=== PATIENT | female | born 1940 | race Caucasian/White ===

== ENCOUNTER 2016-08-18 06:18 | Observation (INO) | payer MEDICARE, BC ==
[~2016-08-18] VITALS: Ht 157.5 cm; Wt 85.9 kg
[2016-08-18] VITALS (8 sets, daily range): BP systolic 122–142; BP diastolic 50–72
[~2016-08-18 06:18] MED LIST: AMLODIPINE5 MG PO; ASPIRIN81 MG PO; CIPROFLOXACN250 MG PO; DILAUDID 2MG2 MG/TA1 PO; GINKGO BILOB30 M1 PO; LORTAB5 OR; MULTI VIT PO; ZYRTEC10 MG PO
--- NOTE | 2016-08-18 06:25 | NUR ---
PATIENT BROUGHT IMMEDIATELY TO TREATMENT AREA. ENCOURAGED TO VOID FOR URINE SAMPLE. UNDRESSED INTO A GOWN. AWAITING MD STEVENSON.
--- NOTE | 2016-08-18 07:21 | NUR ---
PT NOW WITH IV ESTABLISHED, BLOOD DRAWN, PROVIDED MEDS ORDERED.
[2016-08-18 07:23] LABS: HEMATOCRIT 37.5 % (37.0-47.0); HEMOGLOBIN 12.9 g/dl (12.0-16.0); IMMATURE GRANULOCYTES 0.2 % (0.0-1.0); MEAN CELL VOLUME 93.5 fL CALC (80.0-100.0); MEAN CORPUSCULAR HGB 32.2 pG CALC (26.0-32.0); MEAN CORPUSCULAR HGB CONC 34.4 g/L CALC (32.0-36.0); NEUT# 2.68 thou/uL (2.00-7.15); RED BLOOD COUNT 4.01 mill/uL (4.20-5.60); RED CELL DISTRI WIDTH 12.5 % (11.5-15.5)
[2016-08-18 07:28] LABS: ALBUMIN 4.1 g/dL (3.2-5.0); BILIRUBIN, TOTAL 0.4 mg/dL (0.0-1.4); CALCIUM 10.5 mg/dL (8.4-10.2); CREATININE 1.8 mg/dL (0.5-1.0); POTASSIUM 4.3 mmol/l (3.5-5.1); TOTAL PROTEIN 7.2 g/dL (6.3-8.2)
--- NOTE | 2016-08-18 09:36 | NUR ---
DR DOVER HAS CALLED, WILL TAKE PT TO SURGERY TODAY. EKG DONE, PT UPDATED ON SITUATION. PT AWARE OF NPO STATUS.
[2016-08-18 09:49] LABS: URINE BILIRUBIN - DIPSTICK NEGATIVE (NEGATIVE); URINE BLOOD DIPSTICK MODERATE (NEGATIVE); URINE COLOR YELLOW; URINE GLUCOSE - DIPSTICK NEGATIVE (NEGATIVE); URINE KETONE NEGATIVE (NEGATIVE); URINE NITRITE - DIPSTICK NEGATIVE (Negative); URINE PROTEIN - DIPSTICK NEGATIVE (NEG-TRACE); URINE UROBILINOGEN - DIPSTICK 0.2 E.U./dL (0.2)
[2016-08-18 09:51] LABS: URINE CLARITY HAZY; URINE LEUK ESTERASE MODERATE (NEGATIVE)
[2016-08-18 09:56] LABS: URINE SQUAMOUS EPITHELIAL CELL FEW EPI/hpf (0-FEW)
--- NOTE | 2016-08-18 10:51 | NUR ---
REPORT CALLED TO BHARTI, TO JAILENE.
--- NOTE | 2016-08-18 10:55 | NUR ---
PT TO ROOM VIA STRETCHER ACCOMPANIED BY STAFF; AMBULATORY TO BED WITH STAND BY ASSIST; PT A/O X3; PT STATES RT FLANK PAIN STARTED AT 0400 THIS AM, WOKE HER UP OUT OF HER SLEEP; DENIES PAINFUL URINATION; MEDICATED FOR C/O RT FLANK PAIN 10/03; IVF INFUSING IN #22 RFA WITHOUT DIFFICULTY, NO REDNESS OR EDEMA NOTED; ORIENTED TO ROOM AND CALL SYSTEM; CALL GONZALEZ WITHIN REACH; WILL CONTINUE TO MONITOR.
--- NOTE | 2016-08-18 13:19 | NUR ---
PT TO OR VIA STRETCHER ACCOMPANIED BY STAFF;
--- NOTE | 2016-08-18 15:00 | NUR ---
PT TO ROOM VIA STRETCHER ACCOMPANIED BY STAFF; PT A/O X3; PT ASSISTED TO BRP; VOIDS APPROX 100 ML OF YELLOW; PT DENIES PAIN; IVF INFUSING WELL; VSS; SCD IN PLACE; CALL GONZALEZ WITHIN REACH; WILL CONTINUE TO MONITOR
--- NOTE | 2016-08-18 16:45 | NUR ---
PT ASSISTED TO BRP; VOIDS WELL; DENIES PAIN; CALL GONZALEZ WITHIN REACH; WILL CONTINUE TO MONITOR.
--- NOTE | 2016-08-18 18:31 | NUR ---
PT TOELRATED DINNER WELL; DENIES PAIN; IVF INFUSING WITHOUT DIFFICULTY; CALL GONZALEZ WITHIN REACH; WILL CONTINUE TO MONITOR
--- NOTE | 2016-08-18 20:18 | NUR ---
OOB TO BATHROOM WITH STEADY GAIT, VODING CLEAR YELLOW URINE WITH SCANT BLOOD TINGE. DENIES PAIN. IV FLUIDS INFUSING TO RFA AT 125CC/HR. PO FLUIDS IN REACH. CALL LIGHT AT BED SIDE.
--- NOTE | 2016-08-19 00:21 | NUR ---
BACK TO BED FROM BATHROOM WITH STEADY GAIT. DENIES PAIN. IV FLUIDS INFUSING WITH NO COMPLICATIONS. CALL LIGHT IN REACH.
[2016-08-19 04:05] VITALS: BP 129/76
--- NOTE | 2016-08-19 04:48 | NUR ---
OOB TO BATHROOM TO BRUSH HER TEETH, A/O X3, DENIES PAIN. IV FLUIDS INFUSING TO RFA WITH NO COMPLICATIONS.
[2016-08-19 07:13] LABS: CALCIUM 8.6 mg/dL (8.4-10.2); CREATININE 1.5 mg/dL (0.5-1.0); POTASSIUM 4.2 mmol/l (3.5-5.1)
[2016-08-19 07:52] VITALS: BP 139/62
[2016-08-19] MEDS ORDERED: KEFLEX250 MG PO (10:53)
[2016-08-19] MEDS ORDERED: TAMSULOSIN HCL0.4 MG PO (10:53)
[2016-08-19] MEDS ORDERED: DITROPAN5 MG/TA1 PO (10:53)
--- NOTE | 2016-08-19 11:45 | NUR ---
Discharge instructions given. Patient verbalizes understanding of same. Discharged in stable condition via Wheelchair to Home with family. All belongings sent with pt.
== END 2016-08-19 11:45 | disposition home or self-care (01) ==
LOC: ENPENDDIS → ED 06:18 → ED-I 08:40 → ED 08:51 → MS2 08:52
PROVIDERS: Emergency Medicine; ADMIT Internal Medicine; ATTEND Internal Medicine
PROC: 0T768DZ Dilation of Right Ureter with Intraluminal Device, Via Natural or Artificial Opening Endoscopic (ICD-10-PCS; principal; 2016-08-18)
PROC: BT1DZZZ Fluoroscopy of Right Kidney, Ureter and Bladder (ICD-10-PCS; 2016-08-18)
DX: N13.2 Hydronephrosis with renal and ureteral calculous obstruction (principal); I12.9 Hypertensive chronic kidney disease with stage 1 through stage 4 chronic kidney disease, or unspecified chronic kidney disease; N18.3 Chronic kidney disease, stage 3 (moderate); N17.9 Acute kidney failure, unspecified; I48.91 Unspecified atrial fibrillation; K21.9 Gastro-esophageal reflux disease without esophagitis; Z87.442 Personal history of urinary calculi; Z79.82 Long term (current) use of aspirin; Z95.0 Presence of cardiac pacemaker; R05 Cough
CPT/HCPCS: Q9967

== ENCOUNTER 2016-09-20 05:59 | Day surgery (SDC) | payer MEDICARE, BC ==
[~2016-09-20] VITALS: Ht 157.5 cm; Wt 83.9 kg
[~2016-09-20 05:59] MED LIST changes: +DITROPAN5 MG/TA1 PO; +IRON45 MG PO; +KEFLEX250 MG PO; +METO50TA52 PO; +TAMSULOSIN HCL0.4 MG PO; +VITAMIN D1000 UNIT PO
[2016-09-20] MEDS ORDERED: CEPHALEXIN500 MG PO (06:30)
[2016-09-20 09:25] VITALS: BP 117/62
[2016-09-20] MEDS ORDERED: DOCUSATE CAL240 MG PO (09:27)
[2016-09-20] MEDS ORDERED: NORCO1 TA1 PO (09:27)
[2016-09-20] MEDS ORDERED: KEFLEX250 MG PO (09:27)
== END 2016-09-20 10:12 | disposition home or self-care (01) ==
LOC: ORM 05:59
PROVIDERS: ATTEND Urology
PROC: 0TC68ZZ Extirpation of Matter from Right Ureter, Via Natural or Artificial Opening Endoscopic (ICD-10-PCS; principal; 2016-09-20)
PROC: 0T768DZ Dilation of Right Ureter with Intraluminal Device, Via Natural or Artificial Opening Endoscopic (ICD-10-PCS; 2016-09-20)
DX: N13.2 Hydronephrosis with renal and ureteral calculous obstruction (principal); I12.9 Hypertensive chronic kidney disease with stage 1 through stage 4 chronic kidney disease, or unspecified chronic kidney disease; N18.3 Chronic kidney disease, stage 3 (moderate); I45.10 Unspecified right bundle-branch block; I48.91 Unspecified atrial fibrillation; E78.5 Hyperlipidemia, unspecified; E66.9 Obesity, unspecified; Z87.891 Personal history of nicotine dependence; Z95.0 Presence of cardiac pacemaker
CPT/HCPCS: J2710; Q9967

== ENCOUNTER 2019-12-11 07:19 | Emergency (ER) | payer MEDICARE, BC ==
[~2019-12-11] VITALS: Ht 157.5 cm; Wt 73.0 kg
[~2019-12-11 07:19] MED LIST changes: +CEPHALEXIN500 MG PO; +DOCUSATE CAL240 MG PO; +NORCO1 TA1 PO
[2019-12-11 08:04] LABS: HEMATOCRIT 39.4 % (37.0-47.0); HEMOGLOBIN 13.1 g/dl (12.0-16.0); IMMATURE GRANULOCYTES 0.2 % (0.0-5.0); MEAN CELL VOLUME 94.7 fL CALC (80.0-100.0); MEAN CORPUSCULAR HGB 31.5 pG CALC (26.0-32.0); MEAN CORPUSCULAR HGB CONC 33.2 g/dL CAL (32.0-36.0); NEUT# 3.7 thou/uL (2.00-7.15); RED BLOOD COUNT 4.16 mill/uL (4.20-5.60); RED CELL DISTRI WIDTH 13.1 % (11.5-15.5)
[2019-12-11 08:26] LABS: ALBUMIN 3.9 g/dL (3.2-5.0); BILIRUBIN, TOTAL 0.5 mg/dL (0.0-1.4); CREATININE 1.6 mg/dL (0.5-1.0); POTASSIUM 4.3 mmol/l (3.5-5.1); TOTAL PROTEIN 7.5 g/dL (6.3-8.2)
[2019-12-11 08:30] LABS: ACT PARTIAL THROMBO TIME 23.8 SECONDS (20.0-32.5); PROTHROMBIN TIME 9.9 SECONDS (9.0-12.5)
[2019-12-11 09:39] LABS: URINE BILIRUBIN - DIPSTICK NEGATIVE (NEGATIVE); URINE BLOOD DIPSTICK NEGATIVE (NEGATIVE); URINE COLOR YELLOW; URINE GLUCOSE - DIPSTICK NEGATIVE (NEGATIVE); URINE KETONE NEGATIVE (NEGATIVE); URINE LEUK ESTERASE NEGATIVE (NEGATIVE); URINE NITRITE - DIPSTICK NEGATIVE (Negative); URINE PH 5.5 (4.5-8.0); URINE PROTEIN - DIPSTICK NEGATIVE (NEG-TRACE); URINE SPECIFIC GRAVITY 1.025; URINE UROBILINOGEN - DIPSTICK 0.2 E.U./dL (0.2)
[2019-12-11] MEDS ORDERED: TAMSULOSIN0.4 MG PO (11:15)
[2019-12-11 12:00] VITALS: BP 161/76
== END 2019-12-11 12:00 | disposition home or self-care (01) ==
LOC: ED 07:19
DX: N95.0 Postmenopausal bleeding (principal); D25.9 Leiomyoma of uterus, unspecified; N13.2 Hydronephrosis with renal and ureteral calculous obstruction; K80.20 Calculus of gallbladder without cholecystitis without obstruction; I10 Essential (primary) hypertension; I48.91 Unspecified atrial fibrillation; Z87.442 Personal history of urinary calculi; Z95.0 Presence of cardiac pacemaker

== ENCOUNTER 2020-02-18 02:06 | Emergency (ER) | payer MEDICARE, BC ==
[~2020-02-18] VITALS: Ht 157.5 cm; Wt 71.0 kg
[~2020-02-18 02:06] MED LIST changes: +TAMSULOSIN0.4 MG PO
[2020-02-18] MEDS ORDERED: DITROPAN5 MG/TA1 PO (02:34)
[2020-02-18 02:51] LABS: HEMATOCRIT 34.5 % (37.0-47.0); HEMOGLOBIN 11.3 g/dl (12.0-16.0); IMMATURE GRANULOCYTES 0.1 % (0.0-5.0); MEAN CELL VOLUME 97.5 fL CALC (80.0-100.0); MEAN CORPUSCULAR HGB 31.9 pG CALC (26.0-32.0); MEAN CORPUSCULAR HGB CONC 32.8 g/dL CAL (32.0-36.0); NEUT# 2.82 thou/uL (2.00-7.15); RED BLOOD COUNT 3.54 mill/uL (4.20-5.60); RED CELL DISTRI WIDTH 13.2 % (11.5-15.5)
[2020-02-18 03:12] LABS: ALBUMIN 3.5 g/dL (3.2-5.0); BILIRUBIN, TOTAL 0.3 mg/dL (0.0-1.4); CREATININE 1.8 mg/dL (0.5-1.0); POTASSIUM 4.6 mmol/l (3.5-5.1); TOTAL PROTEIN 6.9 g/dL (6.3-8.2)
[2020-02-18 03:13] LABS: PROTHROMBIN TIME 10.4 SECONDS (9.0-12.5)
[2020-02-18 03:45] VITALS: BP 124/70
== END 2020-02-18 04:27 | disposition short-term general hospital (02) ==
LOC: ED 02:06
PROVIDERS: Emergency Medicine
DX: N95.0 Postmenopausal bleeding (principal); D64.9 Anemia, unspecified; C55 Malignant neoplasm of uterus, part unspecified; I10 Essential (primary) hypertension; I48.91 Unspecified atrial fibrillation; Z95.0 Presence of cardiac pacemaker

== ENCOUNTER 2020-12-05 09:46 | Observation (INO) | payer MEDICARE, BC ==
[~2020-12-05] VITALS: Ht 157.5 cm; Wt 66.0 kg
[2020-12-05 10:47] LABS: URINE BILIRUBIN - DIPSTICK NEGATIVE (NEGATIVE); URINE BLOOD DIPSTICK TRACE-INTACT (NEGATIVE); URINE COLOR YELLOW; URINE GLUCOSE - DIPSTICK NEGATIVE (NEGATIVE); URINE KETONE NEGATIVE (NEGATIVE); URINE LEUK ESTERASE NEGATIVE (NEGATIVE); URINE PROTEIN - DIPSTICK TRACE mg/dL (NEG-TRACE); URINE UROBILINOGEN - DIPSTICK 0.2 E.U./dL (0.2)
[2020-12-05 10:47] LABS: MEAN CELL VOLUME 99.3 fL CALC (80.0-100.0); MEAN CORPUSCULAR HGB 34.1 pG CALC (26.0-32.0); MEAN CORPUSCULAR HGB CONC 34.4 g/dL CAL (32.0-36.0); NEUT# 4.53 thou/uL (2.00-7.15); RED BLOOD COUNT 4.25 mill/uL (4.20-5.60); RED CELL DISTRI WIDTH 12.2 % (11.5-15.5)
[2020-12-05 10:49] LABS: URINE NITRITE - DIPSTICK NEGATIVE (Negative)
[2020-12-05 10:54] LABS: HEMATOCRIT 42.2 % (37.0-47.0); HEMOGLOBIN 14.5 g/dl (12.0-16.0)
[2020-12-05 11:05] LABS: AMYLASE 85 u/l (30-110); ANION GAP 15 (6-22 (CALC)); BUN 20 mg/dL (8-23); BUN/CREATININE RATIO 12 (12-20 (CALC)); CARBON DIOXIDE 28 mmol/l (22-30); CHLORIDE 101 mmol/l (95-108); CREATININE 1.7 mg/dL (0.5-1.0); GFR 29 ML/MIN (>=60 (CALC)); GFR FOR AFR.AMER. 35 ML/MIN (>=60 (CALC)); LIPASE 42 u/l (23-300); POTASSIUM 3.8 mmol/l (3.5-5.1); SGOT/AST 32 u/l (9-36); SODIUM 140 mmol/l (137-146)
[2020-12-05 11:06] LABS: BILIRUBIN, TOTAL 0.8 mg/dL (0.0-1.4); TOTAL PROTEIN 8.5 g/dL (6.3-8.2)
[2020-12-05 11:07] LABS: ALBUMIN 4.4 g/dL (3.2-5.0); ALKALINE PHOSPHATASE 109 u/l (38-126)
[2020-12-05 11:17] LABS: MYOGLOBIN 33 ng/mL (0 - 62)
[2020-12-05 17:06] VITALS: BP 113/61
[2020-12-05 19:00] VITALS: BP 96/52
[2020-12-06] VITALS (10 sets, daily range): BP systolic 91–128; BP diastolic 40–88
[2020-12-06 05:20] LABS: HEMATOCRIT 38.9 % (37.0-47.0); HEMOGLOBIN 13.3 g/dl (12.0-16.0); MEAN CELL VOLUME 99.7 fL CALC (80.0-100.0); MEAN CORPUSCULAR HGB 34.1 pG CALC (26.0-32.0); MEAN CORPUSCULAR HGB CONC 34.2 g/dL CAL (32.0-36.0); RED BLOOD COUNT 3.9 mill/uL (4.20-5.60); RED CELL DISTRI WIDTH 12.3 % (11.5-15.5)
[2020-12-06 05:38] LABS: CREATININE 1.6 mg/dL (0.5-1.0); MAGNESIUM 1.6 mg/dL (1.6-2.3); POTASSIUM 4.1 mmol/l (3.5-5.1)
[2020-12-07] VITALS: BP 118/59
[2020-12-07 04:00] VITALS: BP 123/54
[2020-12-07 05:29] LABS: MEAN CELL VOLUME 102.5 fL CALC (80.0-100.0); MEAN CORPUSCULAR HGB 33.8 pG CALC (26.0-32.0); MEAN CORPUSCULAR HGB CONC 32.9 g/dL CAL (32.0-36.0); RED BLOOD COUNT 3.2 mill/uL (4.20-5.60); RED CELL DISTRI WIDTH 12.7 % (11.5-15.5)
[2020-12-07 05:33] LABS: HEMATOCRIT 32.8 % (37.0-47.0); HEMOGLOBIN 10.8 g/dl (12.0-16.0)
[2020-12-07 05:40] LABS: CREATININE 1.5 mg/dL (0.5-1.0); MAGNESIUM 1.5 mg/dL (1.6-2.3); POTASSIUM 3.9 mmol/l (3.5-5.1)
[2020-12-07 07:51] VITALS: BP 134/64
[2020-12-07 09:28] VITALS: BP 134/64
[2020-12-07] MEDS ORDERED: ZOFRAN4 MG/TAB PO (11:15)
[2020-12-07] MEDS ORDERED: SENNOSIDES (SE8.6 MG PO (11:18)
[2020-12-07] MEDS ORDERED: HYDROCO/APAP1 TA9 PO (11:18)
== END 2020-12-07 13:13 ==
LOC: ED 09:46 → ED-I 11:34 → MS2 15:30 → ED 15:30 → MS2 15:30
PROVIDERS: Emergency Medicine; Nurse Practitioner; ADMIT Hospitalist; ATTEND Hospitalist
PROC: 0FT44ZZ Resection of Gallbladder, Percutaneous Endoscopic Approach (ICD-10-PCS; principal; 2020-12-06)
DX: K80.12 Calculus of gallbladder with acute and chronic cholecystitis without obstruction (principal); I12.9 Hypertensive chronic kidney disease with stage 1 through stage 4 chronic kidney disease, or unspecified chronic kidney disease; N18.30 Chronic kidney disease, stage 3 unspecified; I48.91 Unspecified atrial fibrillation; K21.9 Gastro-esophageal reflux disease without esophagitis; Z95.0 Presence of cardiac pacemaker; Z87.442 Personal history of urinary calculi; Z20.822 Contact with and (suspected) exposure to COVID-19
CPT/HCPCS: J0131; J1610; J3475; Q9967

== ENCOUNTER 2021-06-06 17:31 | Inpatient (IN) | payer MEDICARE, BC ==
[~2021-06-06] VITALS: Ht 157.5 cm; Wt 69.0 kg
[2021-06-06] VITALS (15 sets, daily range): BP systolic 92–135; BP diastolic 45–69
[~2021-06-06 17:31] MED LIST changes: +HYDROCO/APAP1 TA9 PO; +LOPRESSOR 550 MG/TAB PO; -METO50TA52 PO; +SENNOSIDES (SE8.6 MG PO; +ZOFRAN4 MG/TAB PO
[2021-06-06 18:06] LABS: HEMATOCRIT 36.5 % (37.0-47.0); HEMOGLOBIN 11.9 g/dl (12.0-16.0); IMMATURE GRANULOCYTES 0.2 % (0.0-5.0); MEAN CELL VOLUME 103.1 fL CALC (80.0-100.0); MEAN CORPUSCULAR HGB 33.6 pG CALC (26.0-32.0); MEAN CORPUSCULAR HGB CONC 32.6 g/dL CAL (32.0-36.0); NEUT# 3.99 thou/uL (2.00-7.15); RED BLOOD COUNT 3.54 mill/uL (4.20-5.60); RED CELL DISTRI WIDTH 15.7 % (11.5-15.5)
[2021-06-06 18:12] LABS: BILIRUBIN, TOTAL 0.7 mg/dL (0.0-1.4); TOTAL PROTEIN 7.4 g/dL (6.3-8.2)
[2021-06-06 18:16] LABS: ALBUMIN 3.5 g/dL (3.2-5.0); CREATININE 2.5 mg/dL (0.5-1.0); POTASSIUM 5.3 mmol/l (3.5-5.1)
[2021-06-06 18:17] LABS: MAGNESIUM 2.1 mg/dL (1.6-2.3)
[2021-06-06 18:36] LABS: URINE BILIRUBIN - DIPSTICK NEGATIVE (NEGATIVE); URINE BLOOD DIPSTICK NEGATIVE (NEGATIVE); URINE COLOR YELLOW; URINE GLUCOSE - DIPSTICK NEGATIVE (NEGATIVE); URINE KETONE 15 mg/dL (NEGATIVE); URINE LEUK ESTERASE NEGATIVE (NEGATIVE); URINE PH 5.5 (4.5-8.0); URINE PROTEIN - DIPSTICK TRACE mg/dL (NEG-TRACE); URINE SPECIFIC GRAVITY >=1.030; URINE UROBILINOGEN - DIPSTICK 0.2 E.U./dL (0.2)
[2021-06-06 18:38] LABS: URINE NITRITE - DIPSTICK NEGATIVE (Negative)
[2021-06-07] VITALS (13 sets, daily range): BP systolic 72–96; BP diastolic 25–60
[2021-06-07 06:14] LABS: HEMATOCRIT 36.7 % (37.0-47.0); HEMOGLOBIN 11.8 g/dl (12.0-16.0); MEAN CELL VOLUME 104.3 fL CALC (80.0-100.0); MEAN CORPUSCULAR HGB 33.5 pG CALC (26.0-32.0); MEAN CORPUSCULAR HGB CONC 32.2 g/dL CAL (32.0-36.0); RED BLOOD COUNT 3.52 mill/uL (4.20-5.60); RED CELL DISTRI WIDTH 15.9 % (11.5-15.5)
[2021-06-07 06:17] LABS: ALBUMIN 2.9 g/dL (3.2-5.0); CREATININE 2.6 mg/dL (0.5-1.0); MAGNESIUM 2.1 mg/dL (1.6-2.3); POTASSIUM 4.7 mmol/l (3.5-5.1); TOTAL PROTEIN 6.2 g/dL (6.3-8.2)
[2021-06-07 06:19] LABS: BILIRUBIN, TOTAL 0.4 mg/dL (0.0-1.4)
[2021-06-07] MEDS ORDERED: CORDARONE/200 MG/TAB PO (07:09)
[2021-06-08] VITALS (64 sets, daily range): BP systolic 57–175; BP diastolic 32–150
[2021-06-08 13:01] LABS: HEMATOCRIT 35.4 % (37.0-47.0); HEMOGLOBIN 10.7 g/dl (12.0-16.0); IMMATURE GRANULOCYTES 0.3 % (0.0-5.0); MEAN CORPUSCULAR HGB 33.5 pG CALC (26.0-32.0); MEAN CORPUSCULAR HGB CONC 30.2 g/dL CAL (32.0-36.0); NEUT# 8.15 thou/uL (2.00-7.15); RED BLOOD COUNT 3.19 mill/uL (4.20-5.60); RED CELL DISTRI WIDTH 16.3 % (11.5-15.5)
[2021-06-08 13:26] LABS: ALBUMIN 2.9 g/dL (3.2-5.0); BILIRUBIN, TOTAL 0.4 mg/dL (0.0-1.4); MAGNESIUM 2.1 mg/dL (1.6-2.3); POTASSIUM 4.3 mmol/l (3.5-5.1); TOTAL PROTEIN 6.2 g/dL (6.3-8.2)
[2021-06-08 13:28] LABS: CREATININE 3.6 mg/dL (0.5-1.0)
[2021-06-08 19:17] LABS: URINE BILIRUBIN - DIPSTICK NEGATIVE (NEGATIVE); URINE BLOOD DIPSTICK MODERATE (NEGATIVE); URINE COLOR YELLOW; URINE GLUCOSE - DIPSTICK NEGATIVE (NEGATIVE); URINE KETONE NEGATIVE (NEGATIVE); URINE LEUK ESTERASE NEGATIVE (NEGATIVE); URINE PROTEIN - DIPSTICK 30 mg/dL (NEG-TRACE); URINE UROBILINOGEN - DIPSTICK 0.2 E.U./dL (0.2)
[2021-06-08 19:18] LABS: URINE NITRITE - DIPSTICK NEGATIVE (Negative)
[2021-06-08 19:24] LABS: URINE SQUAMOUS EPITHELIAL CELL FEW EPI/hpf (0-FEW); URINE WBC 0-2 WBC/hpf (0-5)
[2021-06-08 20:53] LABS: C-REACTIVE PROTEIN 2.1 mg/dL (0-0.9)
[2021-06-08 21:20] LABS: TSH, 3RD GENERATION 1.12 uIU/mL (0.47 - 4.68)
[2021-06-09] VITALS (144 sets, daily range): BP systolic 73–140; BP diastolic 32–73
[2021-06-09 02:23] LABS: PROTHROMBIN TIME 13.2 SECONDS (9.0-12.5)
[2021-06-09 02:31] LABS: INTERNATIONAL NORMALIZED RATIO 1.3 RATIO (0.7-1.3)
[2021-06-09 05:38] LABS: HEMATOCRIT 33.8 % (37.0-47.0); HEMOGLOBIN 10.8 g/dl (12.0-16.0); IMMATURE GRANULOCYTES 0.4 % (0.0-5.0); MEAN CELL VOLUME 105.3 fL CALC (80.0-100.0); MEAN CORPUSCULAR HGB 33.6 pG CALC (26.0-32.0); NEUT# 7.89 thou/uL (2.00-7.15); RED BLOOD COUNT 3.21 mill/uL (4.20-5.60); RED CELL DISTRI WIDTH 16.1 % (11.5-15.5)
[2021-06-09 05:57] LABS: ALBUMIN 2.9 g/dL (3.2-5.0); BILIRUBIN, TOTAL 0.4 mg/dL (0.0-1.4); CREATININE 2.9 mg/dL (0.5-1.0); TOTAL PROTEIN 6.1 g/dL (6.3-8.2)
[2021-06-10] VITALS (147 sets, daily range): BP systolic 85–140; BP diastolic 35–98
[2021-06-10 05:12] LABS: HEMATOCRIT 29.7 % (37.0-47.0); HEMOGLOBIN 9.7 g/dl (12.0-16.0); IMMATURE GRANULOCYTES 0.2 % (0.0-5.0); MEAN CELL VOLUME 102.8 fL CALC (80.0-100.0); MEAN CORPUSCULAR HGB 33.6 pG CALC (26.0-32.0); MEAN CORPUSCULAR HGB CONC 32.7 g/dL CAL (32.0-36.0); NEUT# 6.99 thou/uL (2.00-7.15); RED BLOOD COUNT 2.89 mill/uL (4.20-5.60); RED CELL DISTRI WIDTH 16.3 % (11.5-15.5)
[2021-06-10 05:43] LABS: ALBUMIN 2.5 g/dL (3.2-5.0); BILIRUBIN, TOTAL 0.3 mg/dL (0.0-1.4); C-REACTIVE PROTEIN 4.7 mg/dL (0-0.9); CREATININE 2.1 mg/dL (0.5-1.0); POTASSIUM 3.5 mmol/l (3.5-5.1); TOTAL PROTEIN 5.4 g/dL (6.3-8.2)
[2021-06-11] VITALS (103 sets, daily range): BP systolic 90–185; BP diastolic 36–87
[2021-06-11 05:35] LABS: HEMATOCRIT 26.1 % (37.0-47.0); HEMOGLOBIN 8.4 g/dl (12.0-16.0); IMMATURE GRANULOCYTES 0.2 % (0.0-5.0); MEAN CELL VOLUME 104.4 fL CALC (80.0-100.0); MEAN CORPUSCULAR HGB 33.6 pG CALC (26.0-32.0); MEAN CORPUSCULAR HGB CONC 32.2 g/dL CAL (32.0-36.0); NEUT# 2.78 thou/uL (2.00-7.15); RED BLOOD COUNT 2.5 mill/uL (4.20-5.60); RED CELL DISTRI WIDTH 16.8 % (11.5-15.5)
[2021-06-11 05:48] LABS: ALBUMIN 1.9 g/dL (3.2-5.0); BILIRUBIN, TOTAL 0.3 mg/dL (0.0-1.4); CREATININE 1.9 mg/dL (0.5-1.0); POTASSIUM 3.5 mmol/l (3.5-5.1); TOTAL PROTEIN 4.6 g/dL (6.3-8.2)
[2021-06-11 15:22] LABS: HEMATOCRIT 27.8 % (37.0-47.0); HEMOGLOBIN 8.9 g/dl (12.0-16.0)
[2021-06-12] VITALS (24 sets, daily range): BP systolic 130–194; BP diastolic 52–78
[2021-06-12 05:18] LABS: HEMATOCRIT 27.9 % (37.0-47.0); HEMOGLOBIN 9.1 g/dl (12.0-16.0); IMMATURE GRANULOCYTES 0.2 % (0.0-5.0); MEAN CORPUSCULAR HGB 33.6 pG CALC (26.0-32.0); MEAN CORPUSCULAR HGB CONC 32.6 g/dL CAL (32.0-36.0); NEUT# 3.46 thou/uL (2.00-7.15); RED BLOOD COUNT 2.71 mill/uL (4.20-5.60); RED CELL DISTRI WIDTH 16.7 % (11.5-15.5)
[2021-06-12 06:05] LABS: ALBUMIN 2.1 g/dL (3.2-5.0); BILIRUBIN, TOTAL 0.2 mg/dL (0.0-1.4); CREATININE 1.7 mg/dL (0.5-1.0); MAGNESIUM 1.9 mg/dL (1.6-2.3); POTASSIUM 3.4 mmol/l (3.5-5.1); TOTAL PROTEIN 4.7 g/dL (6.3-8.2)
[2021-06-13] VITALS (28 sets, daily range): BP systolic 120–201; BP diastolic 54–81
[2021-06-13 05:17] LABS: HEMOGLOBIN 8.3 g/dl (12.0-16.0); MEAN CELL VOLUME 101.2 fL CALC (80.0-100.0); MEAN CORPUSCULAR HGB 33.6 pG CALC (26.0-32.0); MEAN CORPUSCULAR HGB CONC 33.2 g/dL CAL (32.0-36.0); RED BLOOD COUNT 2.47 mill/uL (4.20-5.60); RED CELL DISTRI WIDTH 16.5 % (11.5-15.5)
[2021-06-13 05:43] LABS: CREATININE 1.4 mg/dL (0.5-1.0); MAGNESIUM 1.7 mg/dL (1.6-2.3); POTASSIUM 2.8 mmol/l (3.5-5.1)
== END 2021-06-13 16:40 | DRG 871 ==
LOC: ED 17:31 → ED-I 19:24 → ED 19:39 → MS2 19:40 → ICU 06-08 02:00
PROVIDERS: Emergency Medicine; Family Medicine; Internal Medicine; Internal Medicine Nephrology; Nurse Practitioner; ADMIT Hospitalist; ATTEND Hospitalist
PROC: 02HV33Z Insertion of Infusion Device into Superior Vena Cava, Percutaneous Approach (ICD-10-PCS; principal; 2021-06-09)
PROC: 0T9B70Z Drainage of Bladder with Drainage Device, Via Natural or Artificial Opening (ICD-10-PCS; 2021-06-09)
DX: A41.1 Sepsis due to other specified staphylococcus (principal); R65.21 Severe sepsis with septic shock; G93.41 Metabolic encephalopathy; N17.0 Acute kidney failure with tubular necrosis; E87.2 Acidosis; N18.4 Chronic kidney disease, stage 4 (severe); N13.30 Unspecified hydronephrosis; K92.1 Melena; I95.9 Hypotension, unspecified; E86.0 Dehydration; E86.9 Volume depletion, unspecified; E87.5 Hyperkalemia; I12.9 Hypertensive chronic kidney disease with stage 1 through stage 4 chronic kidney disease, or unspecified chronic kidney disease; I49.5 Sick sinus syndrome; I25.10 Atherosclerotic heart disease of native coronary artery without angina pectoris; I48.91 Unspecified atrial fibrillation; D63.1 Anemia in chronic kidney disease; K21.9 Gastro-esophageal reflux disease without esophagitis; M16.12 Unilateral primary osteoarthritis, left hip; Z87.442 Personal history of urinary calculi; Z95.0 Presence of cardiac pacemaker; Z60.2 Problems related to living alone; Z78.1 Physical restraint status; Z85.41 Personal history of malignant neoplasm of cervix uteri; Z20.822 Contact with and (suspected) exposure to COVID-19
CPT/HCPCS: G0378; J2060; Q3014; S0164; S0166

== ENCOUNTER 2023-10-28 09:07 | Inpatient (IN) | payer MEDICARE, BC ==
[~2023-10-28] VITALS: Ht 157.5 cm; Wt 71.3 kg
[2023-10-28] VITALS (28 sets, daily range): BP systolic 51–168; BP diastolic 29–140
[~2023-10-28 09:07] MED LIST changes: +CORDARONE/200 MG/TAB PO
[2023-10-28] MEDS ORDERED: DEXTROSE 10% 500 ML BAG IV ONE (09:15)
[2023-10-28] MEDS ORDERED: Diph, Acellular Pertussis, Tet 0.5 ML/VIAL (Tdap) SDV IM ONE (09:30)
[2023-10-28 09:46] LABS: BASO% 0.4 % (0-3); HEMATOCRIT 39.2 % (37.0-47.0); HEMOGLOBIN 12.9 g/dl (12.0-16.0); IMMATURE GRANULOCYTES 0.3 % (0.0-5.0); LYMPH% 17.5 % (15-41); MEAN CELL VOLUME 98.5 fL CALC (80.0-100.0); MEAN CORPUSCULAR HGB 32.4 pG CALC (26.0-32.0); MEAN CORPUSCULAR HGB CONC 32.9 g/dL CAL (32.0-36.0); MONO% 5.2 % (2-13); NEUT# 5.62 thou/uL (2.00-7.15); NEUT% 76.6 % (42-76); RED BLOOD COUNT 3.98 mill/uL (4.20-5.60); RED CELL DISTRI WIDTH 16.2 % (11.5-15.5)
[2023-10-28] MEDS ORDERED: SODIUM CHLORIDE 0.9% 1,000 ML IV ONE ×2 (09:55→11:05)
[2023-10-28 10:04] LABS: ALBUMIN 3.3 g/dL (3.2-5.0); TOTAL PROTEIN 6.5 g/dL (6.3-8.2)
[2023-10-28 10:07] LABS: CREATININE 3.4 mg/dL (0.5-1.0); POTASSIUM 5.2 mmol/l (3.5-5.1)
[2023-10-28 10:54] LABS: URINE BILIRUBIN - DIPSTICK Negative (NEGATIVE); URINE BLOOD DIPSTICK Negative (NEGATIVE); URINE GLUCOSE - DIPSTICK Negative (NEGATIVE); URINE KETONE Negative (NEGATIVE); URINE LEUK ESTERASE Negative (NEGATIVE); URINE NITRITE - DIPSTICK Negative (Negative); URINE PROTEIN - DIPSTICK 30 mg/dL (NEG-TRACE); URINE SPECIFIC GRAVITY 1.025; URINE UROBILINOGEN - DIPSTICK 0.2 E.U./dL (0.2)
[2023-10-28 10:58] LABS: URINE COLOR Yellow
[2023-10-28 11:03] LABS: URINE RBC 0-2 RBC/hpf (0-5)
[2023-10-28] MEDS ORDERED: LIDOcaine HCl 1% (Local Anesth.) 20 ML VIAL IM STA (11:51)
[2023-10-28] MEDS ORDERED: cefTRIAXone SODIUM 1 GM/VIAL SDV IM ONE (11:55)
[2023-10-28] MEDS ORDERED: ACETAMINOPHEN 325 MG/TAB PO PRN (12:10)
[2023-10-28] MEDS ORDERED: MAGNESIUM HYDROXIDE 30 ML UDC PO PRN (12:10)
[2023-10-28] MEDS ORDERED: Heparin SODIUM (Porcine) 5,000 UNITS/ML SDV SC SCH (14:00)
[2023-10-28] MEDS ORDERED: MIDODRINE HCL 5 MG TAB PO SCH (15:00)
[2023-10-28] MEDS ORDERED: SODIUM BICARBONATE 150 ML in DEXTROSE 5% 850 ML IV SCH (15:00)
[2023-10-28] MEDS ORDERED: DEXTROSE 5% 0 ML IV ONE (15:22)
[2023-10-28] MEDS ORDERED: DEXTROSE 5% 1,000 ML IV ONE (15:26)
[2023-10-28] MEDS ORDERED: DEXAMETHASONE SODIUM PHOSPHATE 4 MG/VIAL SDV IV SCH (16:00)
[2023-10-28 16:28] LABS: CREATININE 3.3 mg/dL (0.5-1.0); POTASSIUM 4.7 mmol/l (3.5-5.1)
[2023-10-28] MEDS ORDERED: CALCIUM GLUCONATE 1 GM in SODIUM CHLORIDE 0.9% 50 ML IV SCH (17:00)
[2023-10-29] VITALS (8 sets, daily range): BP systolic 89–144; BP diastolic 42–74
[2023-10-29 05:07] LABS: BASO% 0.2 % (0-3); IMMATURE GRANULOCYTES 0.8 % (0.0-5.0); LYMPH% 16.1 % (15-41); MEAN CELL VOLUME 96.7 fL CALC (80.0-100.0); MEAN CORPUSCULAR HGB 32.8 pG CALC (26.0-32.0); MONO% 0.9 % (2-13); NEUT# 5.21 thou/uL (2.00-7.15); RED BLOOD COUNT 3.35 mill/uL (4.20-5.60); RED CELL DISTRI WIDTH 15.9 % (11.5-15.5)
[2023-10-29 05:09] LABS: HEMATOCRIT 32.4 % (37.0-47.0)
[2023-10-29 05:44] LABS: ALKALINE PHOSPHATASE 72 u/l (38-126); BILIRUBIN, TOTAL 0.7 mg/dL (0.02-1.3); BUN 69 mg/dL (8-23); BUN/CREATININE RATIO 20 (12-20 (CALC)); CALCULATED LDLCHOLESTEROL 60 mg/dL (62-129 (CALC)); CHLORIDE 109 mmol/l (95-108); CREATININE 3.4 mg/dL (0.5-1.0); ESTIMATED GFR 13 ML/MIN (>=90 (CALC)); HDL CHOLESTEROL 27 mg/dL (39.0-59.0); MAGNESIUM 2.1 mg/dL (1.6-2.3); POTASSIUM 4.6 mmol/l (3.5-5.1); SGOT/AST 34 u/l (9-36); SODIUM 133 mmol/l (137-146); TOTAL CHOLESTEROL 107 mg/dl (0-199); TOTAL TRIGLYCERIDES 99 mg/dl (0-149); VLDL CHOLESTROL 20 mg/dl (0-48 (CALC))
[2023-10-29 06:02] LABS: ALBUMIN 2.4 g/dL (3.2-5.0); ANION GAP 11 (6-22 (CALC)); CARBON DIOXIDE 18 mmol/l (22-30); TOTAL PROTEIN 4.9 g/dL (6.3-8.2)
[2023-10-30 00:16] VITALS: BP 144/58
[2023-10-30 04:57] VITALS: BP 125/52
[2023-10-30 06:48] VITALS: BP 123/48
[2023-10-30 08:20] LABS: BASO% 0.1 % (0-3); HEMATOCRIT 31.9 % (37.0-47.0); HEMOGLOBIN 10.8 g/dl (12.0-16.0); IMMATURE GRANULOCYTES 0.4 % (0.0-5.0); LYMPH% 11.8 % (15-41); MEAN CELL VOLUME 95.8 fL CALC (80.0-100.0); MEAN CORPUSCULAR HGB 32.4 pG CALC (26.0-32.0); MEAN CORPUSCULAR HGB CONC 33.9 g/dL CAL (32.0-36.0); MONO% 4.2 % (2-13); NEUT# 5.91 thou/uL (2.00-7.15); NEUT% 83.5 % (42-76); RED BLOOD COUNT 3.33 mill/uL (4.20-5.60); RED CELL DISTRI WIDTH 15.7 % (11.5-15.5)
[2023-10-30 08:24] LABS: ALBUMIN 2.8 g/dL (3.2-5.0); BILIRUBIN, TOTAL 0.5 mg/dL (0.02-1.3); CREATININE 3.1 mg/dL (0.5-1.0); POTASSIUM 4.4 mmol/l (3.5-5.1); TOTAL PROTEIN 5.4 g/dL (6.3-8.2)
[2023-10-30] MEDS ORDERED: SODIUM CHLORIDE 0.45% 1,000 ML IV PRN (09:20)
[2023-10-30 10:46] VITALS: BP 118/48
[2023-10-30 14:44] VITALS: BP 122/54
[2023-10-30 23:22] VITALS: BP 135/49
[2023-10-31 03:35] VITALS: BP 139/58
[2023-10-31 05:31] LABS: BASO% 0.1 % (0-3); HEMATOCRIT 30.9 % (37.0-47.0); HEMOGLOBIN 10.5 g/dl (12.0-16.0); IMMATURE GRANULOCYTES 0.9 % (0.0-5.0); MEAN CELL VOLUME 97.2 fL CALC (80.0-100.0); MONO% 7.4 % (2-13); NEUT# 5.38 thou/uL (2.00-7.15); NEUT% 79.6 % (42-76); RED BLOOD COUNT 3.18 mill/uL (4.20-5.60); RED CELL DISTRI WIDTH 15.3 % (11.5-15.5)
[2023-10-31 05:45] LABS: ALBUMIN 2.7 g/dL (3.2-5.0); BILIRUBIN, TOTAL 0.5 mg/dL (0.02-1.3); CREATININE 2.2 mg/dL (0.5-1.0); MAGNESIUM 2.3 mg/dL (1.6-2.3); POTASSIUM 3.8 mmol/l (3.5-5.1); TOTAL PROTEIN 5.2 g/dL (6.3-8.2)
[2023-10-31 06:52] VITALS: BP 131/59
[2023-10-31 10:12] VITALS: BP 129/52
[2023-10-31] MEDS ORDERED: MIDODRINE5 MG PO (11:54)
== END 2023-10-31 13:35 | DRG 315 ==
LOC: ED 09:07 → ED-I 11:40 → ED 11:58 → MS2 11:58
PROVIDERS: Family Medicine; Nurse Practitioner Family; ADMIT Student in an Organized Health Care Education/Training Program; ATTEND Student in an Organized Health Care Education/Training Program
PROC: 05H933Z Insertion of Infusion Device into Right Brachial Vein, Percutaneous Approach (ICD-10-PCS; principal; 2023-10-28)
PROC: 0T9B70Z Drainage of Bladder with Drainage Device, Via Natural or Artificial Opening (ICD-10-PCS; 2023-10-28)
DX: I95.9 Hypotension, unspecified (principal); E87.1 Hypo-osmolality and hyponatremia; N17.9 Acute kidney failure, unspecified; E87.20 Acidosis, unspecified; I48.20 Chronic atrial fibrillation, unspecified; E86.0 Dehydration; I12.9 Hypertensive chronic kidney disease with stage 1 through stage 4 chronic kidney disease, or unspecified chronic kidney disease; N18.31 Chronic kidney disease, stage 3a; E86.9 Volume depletion, unspecified; E87.5 Hyperkalemia; D64.9 Anemia, unspecified; I25.10 Atherosclerotic heart disease of native coronary artery without angina pectoris; K21.9 Gastro-esophageal reflux disease without esophagitis; M19.011 Primary osteoarthritis, right shoulder; R33.9 Retention of urine, unspecified; S80.212A Abrasion, left knee, initial encounter; W19.XXXA Unspecified fall, initial encounter; Y92.009 Unspecified place in unspecified non-institutional (private) residence as the place of occurrence of the external cause; Z95.0 Presence of cardiac pacemaker; Z87.442 Personal history of urinary calculi; Z20.822 Contact with and (suspected) exposure to COVID-19

== ENCOUNTER 2023-11-06 10:53 | Inpatient (IN) | payer MEDICARE, BC ==
[~2023-11-06] VITALS: Ht 157.5 cm; Wt 69.0 kg
[2023-11-06] VITALS (28 sets, daily range): BP systolic 76–163; BP diastolic 53–103
[~2023-11-06 10:53] MED LIST changes: +MIDODRINE5 MG PO
--- NOTE | 2023-11-06 10:54 | NUR ---
PT BROUGHT BACK TO ER ROOM 9 VIA EMS
[2023-11-06] MEDS ORDERED: DILTIAZEM HCL 125 MG in SODIUM CHLORIDE 0.9% 100 ML IV ONE (11:15)
[2023-11-06] MEDS ORDERED: SODIUM CHLORIDE 0.9% 500 ML IV ONE (11:15)
[2023-11-06 11:30] LABS: BASO% 0.3 % (0-3); EOS% 0.4 % (0-8); HEMATOCRIT 36.6 % (37.0-47.0); HEMOGLOBIN 11.6 g/dl (12.0-16.0); IMMATURE GRANULOCYTES 0.5 % (0.0-5.0); MEAN CELL VOLUME 102.5 fL CALC (80.0-100.0); MEAN CORPUSCULAR HGB 32.5 pG CALC (26.0-32.0); MEAN CORPUSCULAR HGB CONC 31.7 g/dL CAL (32.0-36.0); MONO% 7.5 % (2-13); NEUT# 6.28 thou/uL (2.00-7.15); NEUT% 85.3 % (42-76); RED BLOOD COUNT 3.57 mill/uL (4.20-5.60); RED CELL DISTRI WIDTH 15.6 % (11.5-15.5)
--- NOTE | 2023-11-06 11:49 | NUR ---
DILTIAZEM 10ML/HR STARTED, HR 126 BP 129/93.
[2023-11-06 11:52] LABS: ALBUMIN 3.5 g/dL (3.2-5.0); CREATININE 1.2 mg/dL (0.5-1.0); POTASSIUM 4.9 mmol/l (3.5-5.1); TOTAL PROTEIN 6.7 g/dL (6.3-8.2)
--- NOTE | 2023-11-06 12:13 | NUR ---
DILTIAZEM INFUSION INCREASED TO 15MG/HR. HR 140 BP 163/88
[2023-11-06] MEDS ORDERED: FUROSEMIDE 40 MG/4 ML SDV IV ONE ×2 (13:35)
--- NOTE | 2023-11-06 14:30 | NUR ---
RESTING IN SUPINE POSITION. #18 INFUSING TO LAC WITHOUT DIFFICULTY. DENIES NEEDS AT THIS TIME
--- NOTE | 2023-11-06 14:50 | NUR ---
DR HURLEY AT BEDSIDE FOR CENTRAL LINE INSERTION.
--- NOTE | 2023-11-06 16:05 | NUR ---
TO CT VIA STRETCHER ACCOMP[ANIED BY RICA GARCIA
[2023-11-06 16:16] LABS: URINE BILIRUBIN - DIPSTICK Negative (NEGATIVE); URINE BLOOD DIPSTICK Trace-lysed (NEGATIVE); URINE GLUCOSE - DIPSTICK Negative (NEGATIVE); URINE KETONE 15 mg/dL (NEGATIVE); URINE LEUK ESTERASE Negative (NEGATIVE); URINE NITRITE - DIPSTICK Negative (Negative); URINE PH 5.5 (4.5-8.0); URINE PROTEIN - DIPSTICK 100 mg/dL (NEG-TRACE); URINE UROBILINOGEN - DIPSTICK 0.2 E.U./dL (0.2)
[2023-11-06 16:23] LABS: URINE COLOR Yellow
[2023-11-06 16:25] LABS: URINE RBC 0-2 RBC/hpf (0-5)
[2023-11-06] MEDS ORDERED: cefTRIAXone SODIUM 2 GM in SODIUM CHLORIDE 0.9% 100 ML IV ONE (16:25)
[2023-11-06] MEDS ORDERED: AZITHROMYCIN 500 MG in SODIUM CHLORIDE 0.9% 250 ML IV ONE (16:25)
[2023-11-06 16:26] LABS: URINE WBC 0-2 WBC/hpf (0-5)
[2023-11-06 16:27] LABS: URINE SQUAMOUS EPITHELIAL CELL RARE EPI/hpf (0-FEW)
[2023-11-06] MEDS ORDERED: AZITHROMYCIN 500 MG/VIAL SDV IV ONE (16:49)
--- NOTE | 2023-11-06 17:28 | NUR ---
Reassessment of patient completed. No distress noted.
[2023-11-06] MEDS ORDERED: ACETAMINOPHEN 325 MG/TAB PO PRN (17:35)
[2023-11-06] MEDS ORDERED: FUROSEMIDE 40 MG/4 ML SDV IV SCH (17:35)
[2023-11-06] MEDS ORDERED: MAGNESIUM HYDROXIDE 30 ML UDC PO PRN (17:35)
--- NOTE | 2023-11-06 18:04 | NUR ---
REPORT CALLED TO ELAINE GARCIA
--- NOTE | 2023-11-06 18:05 | NUR ---
1000 CC URINE OUTPUT
--- NOTE | 2023-11-06 18:30 | NUR ---
TO ICU VIA STRETCHER, PERSONAL ITEMS WITH PT. BEDSIDE REPORT TO ELAINE GARCIA
--- NOTE | 2023-11-06 18:49 | NUR ---
REPORT RECEIVED FROM ER NURSE AT 1755; PT ARRIVED TO UNIT AT 1820. PT WAS ABLE TO AMBULATE FROM STRETCHER TO BED STAND-BY ASSIST. PT ADMITTED WITH PNA, AFIB FRF, AND CHF EXACERBATION. PT IS A/O. ON CARDIZEM GTT. HR REMAINS AFIB WITH PVC'S. RATE HIGH 90'S TO 130'S. LUNGS CLEAR. PT IS ON 2LNC. BS AACTIVE. ABDOMEN SOFT, NON-TENDER. PULSES STRONG ALL EXTREMETIES. NO EDEMA NOTED. PER ER NURSE, PT PUT OUT 1000ML URINE AFTER RECEIVING LASIX IN ED. PT HAS PURWIK IN PLACE. SMALL SCAB ON LEFT KNEE, NO DRAINAGE, OPEN TO AIR. PT HAS PURPLE BRUISING ALONG LOWER ABDOMEN; PT STATES SHE WAS IN THE HOSPITAL 2 WEEKS AGO AND BRUISING IS FROM SHOTS. SMALL PURPLE BRUISE ON LEFT BUTTOCKS WELL. PT ALSO REPORTS RIGHT SHOULDER PAIN THAT IS CHRONIC. INVENTORY COMPLETED WITH PT. PT GIVEN CALL LIGHT AND INSTRUCTED ON SAFETY/FALL PRECAUTIONS. VSS. REPORT GIVEN TO JOSE MELISSA.
[2023-11-06] MEDS ORDERED: DILTIAZEM HCL 125 MG in SODIUM CHLORIDE 0.9% 100 ML IV PRN (19:05)
--- NOTE | 2023-11-06 20:00 | NUR ---
PT BEDSIDE REPORT AND ASSESSMENT COMPLETE. PREV SHIFT NURSE STATED PT ARRIVED @ APPROX 1820. PT A + O x 3, ANSWERS QUESTIONS APPROP. PT HAS SCAB ON L KNEE, BRUISING TO LOWER ABD, AND BRUSIE TO L HIP AREA. PICS IN PT CHART. CARDIZEM GTT @ 15 MG/HR. HR 123. AFRIB, RVR ON MONITOR. PT HAS NO COMPLAINTS. PT EDUCATED TO CALL FOR ASSISTANCE. CALL LIGHT IN REACH.
[2023-11-06] MEDS ORDERED: ENOXAPARIN SODIUM 40 MG/0.4 ML SYR SC SCH (21:00)
[2023-11-06] MEDS ORDERED: METOPROLOL TARTRATE 50 MG/TAB PO SCH (21:30)
--- NOTE | 2023-11-06 22:00 | NUR ---
PT AWAKE, WATCHING TV. PT GIVEN PO LOPRESSOR PER PROVIDER ORDERS. HR 110-130'S, AFIB, RVR. PT ONLY COMPLAINT IS BP CUFF HURTING, STATED "EITHER YOU TAKE IT OFF OR I WILL" . PT EDUCATED ON NEED TO HAVE IT REMAIN ON. PT AGREED I CAN COME IN PERIODICALLY AND CYCLE IT. CALL LIGHT IN REACH
[2023-11-07] VITALS (27 sets, daily range): BP systolic 50–140; BP diastolic 23–111
--- NOTE | 2023-11-07 | NUR ---
PT AWAKE, WATCHING TV. HAS NO COMPLAINTS. FLUIDS PROVIDED. CARDIZEM GTT @ 15 MG/HR. HR IS 100-120'S, AFIB, RVR. CALL LIGHT IN REACH
--- NOTE | 2023-11-07 02:07 | NUR ---
PT RESTING. CARDIZEM GTT @ 10 MG/HR, HR IS 103, ARIB RVR. 02 SAT IS 95% ON 2L NC. PT HAS NO COMPLAINTS. CALL LIGHT IN REACH
--- NOTE | 2023-11-07 04:09 | NUR ---
PT RESTING, HAS NO COMPLAINTS. CARDIZEM GTT @ 5 MG/HR. HR IS 102, AFIB, RVR. CALL LIGHT IN REACH
[2023-11-07 06:24] LABS: HEMATOCRIT 31.2 % (37.0-47.0); HEMOGLOBIN 10.2 g/dl (12.0-16.0); MEAN CELL VOLUME 102.3 fL CALC (80.0-100.0); MEAN CORPUSCULAR HGB 33.4 pG CALC (26.0-32.0); MEAN CORPUSCULAR HGB CONC 32.7 g/dL CAL (32.0-36.0); RED BLOOD COUNT 3.05 mill/uL (4.20-5.60); RED CELL DISTRI WIDTH 15.5 % (11.5-15.5)
[2023-11-07 06:34] LABS: BILIRUBIN, TOTAL 0.8 mg/dL (0.02-1.3); CREATININE 1.1 mg/dL (0.5-1.0); POTASSIUM 4.3 mmol/l (3.5-5.1); TOTAL PROTEIN 5.5 g/dL (6.3-8.2)
--- NOTE | 2023-11-07 06:34 | NUR ---
PT RESTING. EDUCATED PT ON LASIX. CARDIZEM GTT IS @ 5 MG/HR. HR IS 106. STILL AFIB, RVR. O2 SAT IS 92% ON 2L NC. PT HAS NO COMPLAINTS. CALL LIGHT IN REACH
[2023-11-07 06:47] LABS: ALBUMIN 2.7 g/dL (3.2-5.0); MAGNESIUM 1.7 mg/dL (1.6-2.3)
--- NOTE | 2023-11-07 07:34 | NUR ---
DR. RIBERA ROUNDING AT BEDSIDE TO DISCUSS PLAN OF CARE.
--- NOTE | 2023-11-07 07:35 | NUR ---
PATIENT REPOSITIONED TO HIGH FOWL FOR BREAKFAST. ASSESSMENT COMPLETED. PATIENT ALERT AND ORIENTED X 3. C/O CHRONIC R SHOULDER PAIN THAT SHE STATES WAS ADDRESSED AT PCP'S OFFICE, IMAGES NEGATIVE FOR ACUTE ISSUES, BUT STATES IT IS STILL "BOTHERSOME". PATIENT DECLINED PAIN RELIEF MEASURES. CRACKLES NOTED IN PATIENT'S LOWER LUNGS. BREATHING LABORED ON 2L NC. DENIES OXYGEN USE AT HOME. PATIENT LIVES ALONE. LAST BM 11/02, BUT STATES THIS IS HER NORMAL. SAFETY MEASURES IN PLACE INCLUDING BED IN LOW POSITION AND CALL LIGHT RESTING NEXT TO L HAND. WILL CONTINUE TO WEAN PATIENT OFF OF CARDIZEM GTT.
[2023-11-07] MEDS ORDERED: traMADol HCL 50 MG/TAB PO PRN (08:10)
--- NOTE | 2023-11-07 09:46 | NUR ---
PATIENT HR SUSTAINING IN THE 120s. CARDIZEM INCREASED TO 10 MG/HR. PATIENT RESTING IN BED. WILL CONTINUE TO MONITOR HEART RATE.
--- NOTE | 2023-11-07 12:31 | NUR ---
CARDIOLOGY RECORDS REVIEWED BY DR. CRAWFORD. PATIENT TO START CARDIZEM PO ORDERED BY GALVANIZING POT RUNNER 10/07. PATIENT DENIES TAKING MEDICATION ORDERED AT HOME.
[2023-11-07] MEDS ORDERED: dilTIAZem HCl EXTENDED RELEASE 120 MG CAP PO SCH (13:00)
--- NOTE | 2023-11-07 14:06 | NUR ---
PATIENT SITTING UP IN BED WATCHING TV. DENIES CONCERNS AT THIS TIME. AFIB ON THE MONITOR. NO APPARENT DISTRESS NOTED. WILL CONTINUE WITH PLAN OF CARE.
--- NOTE | 2023-11-07 15:41 | NUR ---
PATIENT CONSENTED TO TRANSFER TO [facility]. POSITIVE CONTACTED, EXPECTED PICKUP IN 15 MINUTES. PATIENT AGREED TO SEND OVER A COPY OF CARDIOLOGY RECORDS RECEIVED FROM DR. ORLANDO MOY'S OFFICE APPROXIMATELY 6866 11/06. PATIENT REQUESTED TO STAY IN [facility]. DECLINED FRESH BRIEF BECAUSE SHE "DOES NOT WANT TO WEAR A DIAPER". AWAITING PICKUP WILL CONTINUE TO MONITOR AFIB.
--- NOTE | 2023-11-07 16:12 | NUR ---
Discharge instructions given. Patient verbalizes understanding of same. Discharged in stable condition via [facility] to [facility] WITH [facility] STAFF FOR HIGHER LEVEL OF CARE. ALL BELONGINGS SENT WITH PATIENT.
--- NOTE | 2023-11-07 16:28 | NUR ---
REPORT GIVEN TO JOSE WHITMORE ON AT [facility]. PATIENT IS GOING TO ROOM 808A UNDER DR. CRISTHIAN CORONADO
[2023-11-07] MEDS ORDERED: AZITHROMYCIN 500 MG in SODIUM CHLORIDE 0.9% 250 ML IV SCH (20:00)
== END 2023-11-07 16:12 | disposition short-term general hospital (02) | DRG 754 ==
LOC: ED 10:53 → ED-I 12:02 → ED 12:02 → ICU 17:19
PROVIDERS: Family Medicine; ADMIT Internal Medicine; ATTEND Internal Medicine
PROC: 05HN33Z Insertion of Infusion Device into Left Internal Jugular Vein, Percutaneous Approach (ICD-10-PCS; principal; 2023-11-06)
DX: C53.9 Malignant neoplasm of cervix uteri, unspecified (principal); I50.31 Acute diastolic (congestive) heart failure; J91.0 Malignant pleural effusion; I13.0 Hypertensive heart and chronic kidney disease with heart failure and stage 1 through stage 4 chronic kidney disease, or unspecified chronic kidney disease; I48.20 Chronic atrial fibrillation, unspecified; J91.8 Pleural effusion in other conditions classified elsewhere; M84.48XA Pathological fracture, other site, initial encounter for fracture; I50.30 Unspecified diastolic (congestive) heart failure; N18.30 Chronic kidney disease, stage 3 unspecified; K21.9 Gastro-esophageal reflux disease without esophagitis; R91.1 Solitary pulmonary nodule; M89.9 Disorder of bone, unspecified; M79.89 Other specified soft tissue disorders; Z87.442 Personal history of urinary calculi; Z95.0 Presence of cardiac pacemaker
CPT/HCPCS: J1650; Q9967